=== PATIENT | male | born 1970 | race African-American/Black ===

== ENCOUNTER 2016-03-20 09:23 | Emergency (ER) | payer BC, OTHER ==
[~2016-03-20] VITALS: Ht 175.3 cm; Wt 100.0 kg
[~2016-03-20 09:23] MED LIST: AMLO5 PO; ASPI81TA82 PO; CARB6.5S5 EACH EAR; DIPH1TAB36 PO; EXCETAB; ISOS60TA PO; LISI-363 PO; LOVA40TA PO; METF500 PO
[2016-03-20 09:25] VITALS: BP 179/97; PULSE 88; RESP 16; TEMP 97.9; O2SAT 97
[2016-03-20 09:27] VITALS: BP 179/97; PULSE 88; RESP 16; TEMP 97.9; O2SAT 97
--- NOTE | 2016-03-20 10:06 | PD ---
HPI Chief Complaint: Complaint Time Seen by Provider: 10:01 Travel History International Travel<30 days: No Contact w/Intl Traveler<30days: No Traveled to known affect area: No History of Present Illness HPI 45yo M with PMH of DM, CAD s/p cardiac stent, HTN presents to the ED with c/o yellow penile discharge for 3 days. Denies any fever, n/v, chest pain, sob, abdominal pain, testicular pain, penile rash. States he got it from his female partner. Had STD years ago. PFSH Past Medical History Hx Anticoagulant Therapy: Yes (asa) Arthritis: No Asthma: No Blood Disorders: No Heart Rhythm Problems: No Cancer: No Cardiac Catheterization: Yes Cardiovascular Problems: Yes (htn, 2 mi, stents) High Cholesterol: Yes Chest Pain: Yes Congestive Heart Failure: No COPD: No Cerebrovascular Accident: No Diabetes: No Endocrine: No Gastrointestinal Disorders: No GERD: Yes Glaucoma: No Genitourinary: No Headaches: No Hepatitis: No Hiatal Hernia: No Hypertension: Yes Immune Disorder: No Kidney Stones: No Musculoskeletal: No Neurologic: No Psychiatric: No Reproductive: No Respiratory: Yes Migraines: No Myocardial Infarction: Yes (2007 - STENT PLACED, X2) Renal Failure: No Seizures: No Sleep Apnea: No Thyroid Disease: No Ulcer: No Past Surgical History Abdominal Surgery: No Appendectomy: No Cardiac Surgery: Yes (stent) Cholecystectomy: No Coronary Stent: Yes Ear Surgery: No Endocrine Surgery: No Eye Surgery: No Genitourinary Surgery: No Gynecologic Surgery: No Neurologic Surgery: No Oral Surgery: Yes (tonsillectomy) Pacemaker: No Thoracic Surgery: No Tonsillectomy: Yes Other Surgery: No Social History Alcohol Use: Yes (THREE TIMES WEEKLY) Tobacco Use: Yes (occ cigars) Substance Use: Yes (COCAINE/MARIJUANA) Allergies-Medications (Allergen,Severity, Reaction): Coded Allergies: No Known Allergies (Verified , 03/20/16) Reported Meds & Prescriptions Reported Meds & Active Scripts Active Debrox (Carbamide Peroxide) 6.5 % Soln 4 Drop EACH EAR DAILY Lisinopril 20 mg (Lisinopril) 20 Mg Tab 20 Mg PO BID Norvasc (Amlodipine Besylate) 5 Mg Tab 5 Mg PO BID Lovastatin 40 Mg Tab 80 Mg PO HS Glucophage 500 mg (Metformin HCl) 500 Mg Tab 500 Mg PO BIDPC Reported Excedrin Migraine (Faxzvpc-Whphazjuiedhd-Sosfdksi) Migraine Tab 250 Mg DAILY Isosorbide Mononitrate Er (Isosorbide Mononitrate) 60 Mg Tab 60 Mg PO HS Tylenol Pm (Acetaminophen/Diphenhydramine HCl) Tab 1 Tab PO HS Aspir-81 (Aspirin) 81 Mg Tab 81 Mg PO DAILY Review of Systems Except as stated in HPI: all other systems reviewed are Neg Physical Exam Narrative GEN: 45yo M not in distress. HEAD: Normocephalic, atraumatic. NECK: No JVD. Trachea midline. CV: S1, S2. Lungs: CTA B/L, equal breath sounds. Abd: soft, NT/ND. No rebound tenderness or guarding. : +White penile discharge. No rash on penis. No testicular pain. BACK: No midline ttp. Ext: Soft calf, no lower extremity edema. Data Data Last Documented VS Vital Signs Date Time Temp Pulse Resp B/P Pulse Ox O2 Delivery O2 Flow Rate FiO2 03/20/16 10:14 82 20 03/20/16 09:27 97.9 179/97 97 Room Air Orders Azithromycin Powd Pack (Zithromax Powd P (03/20/16 10:15) Ceftriaxone Inj (Rocephin Inj) (03/20/16 10:15) Lidocaine 1% Inj (50 Ml) (Xylocaine 1% I (03/20/16 10:15) Gc And Chlamydia Pcr (03/20/16 10:02) MDM Medical Decision Making Medical Screen Exam Complete: Yes Emergency Medical Condition: Yes Differential Diagnosis Chlamydia vs. gonorrhea Narrative Course 45yo M with yellow penile discharge for 3 days. Pt has no testicular pain, abdominal pain, nausea, vomiting, fever or any systemic complaints. Pt is well appearing and given ceftriaxone IM and azithromycin PO for presumed GC/ chlamydia. Cultures were sent. Return precautions given. Diagnosis Primary Impression: STD (male) Patient Instructions: General Instructions Departure Forms: Tests/Procedures Additional Instructions: Please follow up with you PMD in 3-7 days. Return to the ED if symptoms worsen. Please have your partner treated as well and avoid sexual intercourse for 2 weeks. Med/Other Pt SpecificInfo: No Change to Meds Disposition: 01 DISCHARGE HOME Condition: Stable Natividad Vera Mar 20, 2016 10:06
[2016-03-20] MEDS ORDERED: LIDOCAINE HCL 1% 50 ML VIAL IM ONE (10:15)
[2016-03-20] MEDS ORDERED: AZITHROMYCIN PWD FOR SUSP 1 GM PACKET PO ONE (10:15)
[2016-03-20] MEDS ORDERED: cefTRIAXone 250 MG VIAL IM ONE (10:15)
== END 2016-03-20 10:52 | disposition home or self-care (01) ==
LOC: NEDAMB 09:23
DX: A64 Unspecified sexually transmitted disease (principal); Z95.5 Presence of coronary angioplasty implant and graft; I25.10 Atherosclerotic heart disease of native coronary artery without angina pectoris; I10 Essential (primary) hypertension; E11.9 Type 2 diabetes mellitus without complications; Z79.01 Long term (current) use of anticoagulants; E78.00 Pure hypercholesterolemia, unspecified; I25.2 Old myocardial infarction; Z72.0 Tobacco use
CPT/HCPCS: 96372; 99283; J0696

== ENCOUNTER 2016-10-02 20:01 | Emergency (ER) | payer SELFPAY ==
[~2016-10-02] VITALS: Ht 172.7 cm; Wt 100.0 kg
[2016-10-02 20:03] VITALS: BP 186/108; PULSE 95; RESP 16; TEMP 99.2; O2SAT 98
[2016-10-02] MEDS ORDERED: AMLO5TAB2 PO (21:11)
[2016-10-02] MEDS ORDERED: ISOS20TA PO (21:11)
[2016-10-02] MEDS ORDERED: LISI-515 PO (21:11)
[2016-10-02] MEDS ORDERED: ASPI81TA81 (21:11)
[2016-10-02] MEDS ORDERED: LOVA40TA PO (21:11)
[2016-10-02] MEDS ORDERED: ONDANSETRON ODT 4 MG TAB PO ONE (21:15)
[2016-10-02] MEDS ORDERED: metroNIDAZOLE 500 MG TAB PO ONE (21:15)
[2016-10-02] MEDS ORDERED: cefTRIAXone 250 MG VIAL IM ONE (21:15)
[2016-10-02] MEDS ORDERED: LIDOCAINE HCL 1% 50 ML VIAL IM ONE (21:15)
[2016-10-02] MEDS ORDERED: AZITHROMYCIN PWD FOR SUSP 1 GM PACKET PO ONE (21:15)
--- NOTE | 2016-10-02 21:43 | PD ---
HPI Chief Complaint: Medical Clearance Time Seen by Provider: 21:01 Travel History International Travel<30 days: No Contact w/Intl Traveler<30days: No Traveled to known affect area: No History of Present Illness HPI 46 yo man who presents emergent from complaining of dysuria and penile discharge or burning. He states he is only sleeping 1 woman but he's gotten an STD from her before. Denies any testicular pain or swelling. He otherwise has been feeling generally well and healthy. History Past Medical History Narrative Medical CAD Hypertension Diabetes Hyperlipidemia Social History Alcohol Use: Yes (THREE TIMES WEEKLY) Tobacco Use: Yes (occ cigars) Allergies-Medications (Allergen,Severity, Reaction): Coded Allergies: No Known Allergies (Verified , 03/20/16) Reported Meds & Prescriptions Reported Meds & Active Scripts Active Reported Lovastatin 40 Mg Tab 40 Mg PO DAILY Lisinopril 20 Mg Tab 20 Mg PO DAILY Isosorbide Mononitrate 20 Mg Tab 20 Mg PO BID Take 2 doses 7 hours apart. Aspir-81 (Aspirin) 81 Mg Tabdr Amlodipine (Amlodipine Besylate) 5 Mg Tab 5 Mg PO DAILY Review of Systems Except as stated in HPI: all other systems reviewed are Neg Physical Exam Narrative GENERAL: Well-appearing 46-year-old man. SKIN: Warm and dry. CARDIOVASCULAR: Warm and well perfused. RESPIRATORY: Normal rate and effort. : Normal external male genitalia. Circumcised. Mucoid penile discharge. No testicular pain tenderness or swelling. NEUROLOGICAL: Awake and alert. No gross deficits. Data Data Last Documented VS Vital Signs Date Time Temp Pulse Resp B/P Pulse Ox O2 Delivery O2 Flow Rate FiO2 10/02/16 20:03 99.2 95 16 186/108 98 Room Air Orders Azithromycin Powd Pack (Zithromax Powd P (10/02/16 21:15) Ceftriaxone Inj (Rocephin Inj) (10/02/16 21:15) Lidocaine 1% Inj (50 Ml) (Xylocaine 1% I (10/02/16 21:15) Metronidazole (Flagyl) (10/02/16 21:15) Ondansetron Odt (Zofran Odt) (10/02/16 21:15) Gc And Chlamydia Pcr (10/02/16 21:12) MDM Medical Decision Making Medical Screen Exam Complete: Yes Emergency Medical Condition: Yes Differential Diagnosis Urethritis, STD, UTI, other Narrative Course Medical decision making Is a 46 year-old woman presents emergent arm with urethritis symptoms. Looks well. We'll recommend empiric treatment. Diagnosis Primary Impression: Urethritis Additional Instructions: Followup with your primary doctor for routine care and followup testing for other sexually transmitted infection such as HIV, hepatitis, syphilis. Any sexual partners you have should be tested and treated as well. You should not have sex until you have no symptoms, and your partners tested and treated as well. Med/Other Pt SpecificInfo: No Change to Meds Disposition: 01 DISCHARGE HOME Condition: Stable Artie Nicolas MD Oct 02, 2016 21:43
[2016-10-02 21:46] VITALS: BP 172/88
[2016-10-03 00:55] LABS: CHLAMYDIA PCR NOT DETECTED (NOT DETECT); NEISSERIA PCR DETECTED (NOT DETECT)
== END 2016-10-02 22:02 | disposition home or self-care (01) ==
LOC: NEPD 20:01
DX: N34.2 Other urethritis (principal)
CPT/HCPCS: 87491; 87591; 96372; 99284; J0696

== ENCOUNTER 2017-06-22 12:46 | Emergency (ER) | payer OTHER ==
[~2017-06-22 12:46] MED LIST changes: -AMLO5 PO; +AMLO5TAB2 PO; +ASPI81TA81; -ASPI81TA82 PO; -CARB6.5S5 EACH EAR; -DIPH1TAB36 PO; -EXCETAB; +ISOS20TA PO; -ISOS60TA PO; -LISI-363 PO; +LISI-515 PO; -METF500 PO
[2017-06-22 12:55] VITALS: BP 183/92; PULSE 88; RESP 18; TEMP 97.5; O2SAT 99
[2017-06-22 13:32] VITALS: BP 171/100; PULSE 93; RESP 18; O2SAT 98
[2017-06-22] MEDS ORDERED: SODIUM CHLORIDE 0.9% FLUSH 10 ML FLUSH IVF PRN (13:45)
[2017-06-22 13:48] LABS: AUTOMATED NEUTROPHIL # 2.6 TH/MM3 (1.8-7.7); BASOPHIL % 0.5 % (0.0-2.0); EOSINOPHIL % 0.6 % (0.0-4.0); HEMATOCRIT 43.2 % (39.0-51.0); LYMPH % 40.4 % (9.0-44.0); MEAN CELL VOLUME 83.9 FL (80.0-100.0); MEAN CORPUSCULAR HEMOGLOBIN 27.2 PG (27.0-34.0); MEAN CORPUSCULAR HGB CONC 32.4 % (32.0-36.0); MONO % 5.5 % (0.0-8.0); MONOCYTE # 0.3 TH/MM3 (0-0.9); PLATELET COUNT 210 TH/MM3 (150-450); RED BLOOD COUNT 5.15 MIL/MM3 (4.50-5.90); RED CELL DISTRIBUTION WIDTH 14.4 % (11.6-17.2)
--- NOTE | 2017-06-22 13:49 | PD ---
HPI Chief Complaint: Bleeding Time Seen by Provider: 13:24 Travel History International Travel<30 days: No Contact w/Intl Traveler<30days: No Traveled to known affect area: No History of Present Illness HPI Patient is a 47-year-old male presenting to the emergency room for evaluation of rectal bleeding. Patient states he has had 2 bowel movements this morning, after which she is noted blood in the toilet bowl. Patient reports a similar episode several months ago but was never evaluated for it. He denies any constipation, diarrhea, abdominal pain, nausea, vomiting. Patient is also requesting refills of his blood pressure medication. He reports that his primary doctor is in [place] and he cannot get there. He has no complaints of chest pain, shortness of breath, headache. Symptom onset was sudden, symptoms are mild in nature. Unknown alleviating or exacerbating factors. Patient has never had a colonoscopy. He does endorse daily alcohol use, he reports 2-3 beers a day. PFSH Past Medical History Hx Anticoagulant Therapy: Yes (asa) Cardiac Catheterization: Yes High Cholesterol: Yes Chest Pain: Yes Coronary Artery Disease: Yes Diabetes: Yes Gastrointestinal Disorders: Yes (reflux) GERD: Yes Hypertension: Yes Medical other: Yes (reflux) Respiratory: Yes Myocardial Infarction: Yes (2007 - STENT PLACED, X2) Past Surgical History Oral Surgery: Yes (tonsillectomy) Tonsillectomy: Yes Other Surgery: Yes Social History Alcohol Use: Yes (3 beers/daily) Tobacco Use: Yes (occ cigars) Substance Use: Yes (COCAINE/MARIJUANA) Allergies-Medications (Allergen,Severity, Reaction): Coded Allergies: No Known Allergies (Verified , 03/20/16) Reported Meds & Prescriptions Reported Meds & Active Scripts Active Reported Lovastatin 40 Mg Tab 40 Mg PO DAILY Isosorbide Mononitrate 20 Mg Tab 20 Mg PO BID Take 2 doses 7 hours apart. Aspir-81 (Aspirin) 81 Mg Tabdr Amlodipine (Amlodipine Besylate) 5 Mg Tab 5 Mg PO DAILY Review of Systems Except as stated in HPI: all other systems reviewed are Neg HENT: No: Headaches Cardiovascular: No: Chest Pain or Discomfort Respiratory: No: Shortness of Breath Gastrointestinal: Positive: Other, No: Nausea, Vomiting, Diarrhea, Abdominal Pain, Constipation, Changes in Bowel Habits Genitourinary: No: Dysuria Musculoskeletal: No: Myalgias Neurologic: No: Weakness, Dizziness Physical Exam Narrative GENERAL: Overweight, well-developed, alert -Wallis[place] male. Presenting in no acute distress. SKIN: Warm and dry. HEAD: Atraumatic. Normocephalic. EYES: Pupils equal and round. No scleral icterus. No injection or drainage. ENT: No nasal bleeding or discharge. Mucous membranes pink and moist. NECK: Trachea midline. No JVD. CARDIOVASCULAR: Regular rate and rhythm. RESPIRATORY: No accessory muscle use. Clear to auscultation. Breath sounds equal bilaterally. GASTROINTESTINAL: Abdomen soft, non-tender, nondistended. Hepatic and splenic margins not palpable. MUSCULOSKELETAL: Extremities without clubbing, cyanosis, or edema. No obvious deformities. RECTAL EXAM: No masses or tenderness, stool is brown. No external hemorrhoids or fissures noted. NEUROLOGICAL: Awake and alert. No obvious cranial nerve deficits. Motor grossly within normal limits. Five out of 5 muscle strength in the arms and legs. Normal speech. PSYCHIATRIC: Appropriate mood and affect; insight and judgment normal. Data Data Last Documented VS Vital Signs Date Time Temp Pulse Resp B/P (MAP) Pulse Ox O2 Delivery O2 Flow Rate FiO2 06/22/17 14:50 84 16 171/96 (121) 99 Room Air 06/22/17 12:55 97.5 Orders Orders Electrocardiogram (06/22/17 12:58) Complete Blood Count With Diff (06/22/17 12:58) Chest, Single Ap (06/22/17 12:58) Comprehensive Metabolic Panel (06/22/17 13:36) Act Partial Throm Time (Ptt) (06/22/17 13:36) Prothrombin Time / Inr (Pt) (06/22/17 13:36) Ecg Monitoring (06/22/17 13:38) Iv Access Insert/Monitor (06/22/17 13:38) Oximetry (06/22/17 13:38) Sodium Chloride 0.9% Flush (Ns Flush) (06/22/17 13:45) Isosorbide Mononitrate (Ismo) (06/22/17 14:00) Amlodipine (Norvasc) (06/22/17 14:00) Ckmb (Isoenzyme) Profile (06/22/17 13:49) Troponin I (06/22/17 13:49) CKMB (06/22/17 13:49) CKMB% (06/22/17 13:49) Labs Laboratory Tests Test 06/22/17 13:16 06/22/17 13:49 White Blood Count 5.0 TH/MM3 Red Blood Count 5.15 MIL/MM3 Hemoglobin 14.0 GM/DL Hematocrit 43.2 % Mean Corpuscular Volume 83.9 FL Mean Corpuscular Hemoglobin 27.2 PG Mean Corpuscular Hemoglobin Concent 32.4 % Red Cell Distribution Width 14.4 % Platelet Count 210 TH/MM3 Mean Platelet Volume 9.0 FL Neutrophils (%) (Auto) 53.0 % Lymphocytes (%) (Auto) 40.4 % Monocytes (%) (Auto) 5.5 % Eosinophils (%) (Auto) 0.6 % Basophils (%) (Auto) 0.5 % Neutrophils # (Auto) 2.6 TH/MM3 Lymphocytes # (Auto) 2.0 TH/MM3 Monocytes # (Auto) 0.3 TH/MM3 Eosinophils # (Auto) 0.0 TH/MM3 Basophils # (Auto) 0.0 TH/MM3 CBC Comment DIFF FINAL Differential Comment Prothrombin Time 10.4 SEC Prothromb Time International Ratio 1.0 RATIO Activated Partial Thromboplast Time 23.4 SEC Blood Urea Nitrogen 15 MG/DL Creatinine 1.45 MG/DL Random Glucose 335 MG/DL Total Protein 8.0 GM/DL Albumin 3.7 GM/DL Calcium Level 9.2 MG/DL Alkaline Phosphatase 66 U/L Aspartate Amino Transf (AST/SGOT) 48 U/L Alanine Aminotransferase (ALT/SGPT) 66 U/L Total Bilirubin 0.4 MG/DL Sodium Level 138 MEQ/L Potassium Level 4.1 MEQ/L Chloride Level 105 MEQ/L Carbon Dioxide Level 22.9 MEQ/L Anion Gap 10 MEQ/L Estimat Glomerular Filtration Rate 63 ML/MIN Total Creatine Kinase 265 U/L Creatine Kinase MB 0.6 NG/ML Troponin I LESS THAN 0.02 NG/ML MDM Medical Decision Making Medical Screen Exam Complete: Yes Emergency Medical Condition: Yes Medical Record Reviewed: Yes Interpretation(s) Last Impressions Chest X-Ray 06/22/17 [id number] Signed Impressions: Service Date/Time: Thursday, June 22, 2017 13:43 - CONCLUSION: 1. No acute cardiopulmonary disease. Ken Calero MD Laboratory Tests Test 06/22/17 13:16 06/22/17 13:49 White Blood Count 5.0 TH/MM3 Red Blood Count 5.15 MIL/MM3 Hemoglobin 14.0 GM/DL Hematocrit 43.2 % Mean Corpuscular Volume 83.9 FL Mean Corpuscular Hemoglobin 27.2 PG Mean Corpuscular Hemoglobin Concent 32.4 % Red Cell Distribution Width 14.4 % Platelet Count 210 TH/MM3 Mean Platelet Volume 9.0 FL Neutrophils (%) (Auto) 53.0 % Lymphocytes (%) (Auto) 40.4 % Monocytes (%) (Auto) 5.5 % Eosinophils (%) (Auto) 0.6 % Basophils (%) (Auto) 0.5 % Neutrophils # (Auto) 2.6 TH/MM3 Lymphocytes # (Auto) 2.0 TH/MM3 Monocytes # (Auto) 0.3 TH/MM3 Eosinophils # (Auto) 0.0 TH/MM3 Basophils # (Auto) 0.0 TH/MM3 CBC Comment DIFF FINAL Differential Comment Prothrombin Time 10.4 SEC Prothromb Time International Ratio 1.0 RATIO Activated Partial Thromboplast Time 23.4 SEC Blood Urea Nitrogen 15 MG/DL Creatinine 1.45 MG/DL Random Glucose 335 MG/DL Total Protein 8.0 GM/DL Albumin 3.7 GM/DL Calcium Level 9.2 MG/DL Alkaline Phosphatase 66 U/L Aspartate Amino Transf (AST/SGOT) 48 U/L Alanine Aminotransferase (ALT/SGPT) 66 U/L Total Bilirubin 0.4 MG/DL Sodium Level 138 MEQ/L Potassium Level 4.1 MEQ/L Chloride Level 105 MEQ/L Carbon Dioxide Level 22.9 MEQ/L Anion Gap 10 MEQ/L Estimat Glomerular Filtration Rate 63 ML/MIN Total Creatine Kinase 265 U/L Creatine Kinase MB 0.6 NG/ML Troponin I LESS THAN 0.02 NG/ML Vital Signs Date Time Temp Pulse Resp B/P (MAP) Pulse Ox O2 Delivery O2 Flow Rate FiO2 06/22/17 13:32 93 18 171/100 (123) 98 Room Air 06/22/17 13:32 18 99 Room Air 06/22/17 12:55 97.5 88 18 183/92 (122) 99 Differential Diagnosis Hemorrhoids versus anal fissure versus anemia versus upper GI bleed versus metabolic abnormality versus hypertension versus other Narrative Course Patient is a well-appearing 47-year-old male presenting for evaluation of blood in his stools 2 this morning. His blood pressure is mildly elevated on arrival , he is out of his blood pressure medications and is requesting refills. Labs ordered and pending. CBC with no acute findings, specifically patient has no drop in his hemoglobin to suggest chronic bleeding. Chemistry with creatinine 1.45. Cardiac enzymes were ordered while patient was waiting in triage. They are negative 1 set. Patient has no complaints of chest pain Chest x-ray shows no acute disease. Patient was given isosorbide and amlodipine in the emergency department, these are medications that he was on at home. No acute findings identified. Patient will be discharged home with follow-up with his primary doctor. He will also be given information regarding the [facility] clinic because he is having issues with transportation to [place] to see his primary doctor. Patient and verbalized understanding of discharge instructions. Patient stable for discharge. H[facility] Point of Care Fecal Specimen Occult Blood: Positive Diagnosis Primary Impression: Rectal bleeding Additional Impression: Hypertension Qualified Codes: I10 - Essential (primary) hypertension Referrals: [facility] 1 week Patient Instructions: General Instructions, Hypertension (ED), Rectal Bleeding (ED) Additional Instructions: Follow-up with your primary doctor for routine health care. Follow-up with [facility] for colonoscopy Continue home medications as previously prescribed, do not skip doses Return to the emergency department for any new or worsening symptoms Med/Other Pt SpecificInfo: Prescription(s) given Scripts Lovastatin (Lovastatin) 40 Mg Tab 40 MG PO DAILY for Cholesterol Management, #30 TAB 0 Refills Prov: Jen Mae 06/22/17 Isosorbide Mononitrate (Isosorbide Mononitrate) 20 Mg Tab 20 MG PO BID for Prevent Chest Pain, #60 TAB 0 Refills Take 2 doses 7 hours apart. Prov: Jen Mae 06/22/17 Amlodipine (Amlodipine) 5 Mg Tab 5 MG PO DAILY for Blood Pressure Management, #30 TAB 0 Refills Prov: Jen Mae 06/22/17 Disposition: 01 DISCHARGE HOME Condition: Stable Jen Mae Jun 22, 2017 13:49
[2017-06-22] MEDS ORDERED: ISOSORBIDE MONONITRATE 20 MG TAB PO ONE (14:00)
[2017-06-22] MEDS ORDERED: amLODIPine BESYLATE 5 MG TAB PO ONE (14:00)
[2017-06-22 14:12] LABS: PROTHROMBIN TIME - PATIENT 10.4 SEC (9.8-11.6)
[2017-06-22 14:21] LABS: ALKALINE PHOSPHATASE 66 U/L (45-117); TOTAL BILIRUBIN ADULT 0.4 MG/DL (0.2-1.0)
--- NOTE | 2017-06-22 14:25 | RADRPT ---
EXAM DATE/TIME: 06/22/2017 13:43 [facility] COMPARISON: CHEST SINGLE AP, August 12, 2015, 18:52. INDICATIONS : Chest pain that started today. MEDICAL HISTORY : Hypertension. Myocardial infarction. Gastroesophageal reflux disease. SURGICAL HISTORY : Angioplasty. Tonsillectomy. ENCOUNTER: Initial ACUITY: 1 day PAIN SCORE: 4/10 LOCATION: Bilateral chest FINDINGS: A single view of the chest demonstrates the lungs to be symmetrically aerated without evidence of mas s, infiltrate or effusion. The cardiomediastinal contours are unremarkable. Osseous structures are intact. CONCLUSION: 1. No acute cardiopulmonary disease. Ken Calero MD on June 22, 2017 at 14:22 Board Certified Radiologist. This report was verified electronically.
[2017-06-22 14:29] LABS: ALBUMIN 3.7 GM/DL (3.4-5.0); ALT (GPT) 66 U/L (12-78); AST (GOT) 48 U/L (15-37); BICARBONATE 22.9 MEQ/L (21.0-32.0); BLOOD UREA NITROGEN 15 MG/DL (7-18); CALCIUM 9.2 MG/DL (8.5-10.1); CHLORIDE 105 MEQ/L (98-107); CREATININE 1.45 MG/DL (0.60-1.30); GLOMERULAR FILTRATION RATE 63 ML/MIN (>89); GLUCOSE,RANDOM 335 MG/DL (74-106); SODIUM (NA) 138 MEQ/L (136-145); TROPONIN I LESS THAN 0.02 NG/ML (0.02-0.05)
[2017-06-22 14:37] VITALS: BP 160/80; PULSE 96; RESP 16; O2SAT 95
[2017-06-22 14:50] VITALS: BP 171/96; PULSE 84; RESP 16; O2SAT 99
[2017-06-22 15:12] VITALS: BP 152/81; PULSE 85; RESP 16; O2SAT 97
[2017-06-22] MEDS ORDERED: LOVA40TA PO (15:14)
[2017-06-22] MEDS ORDERED: AMLO5TAB2 PO (15:14)
[2017-06-22] MEDS ORDERED: ISOS20TA PO (15:14)
--- NOTE | 2017-06-23 21:30 | EKG ---
Date Performed: 06/22/2017 Time Performed: 13:05:30 PTAGE: 47 years EKG: Sinus rhythm LEFT VENTRICULAR HYPERTROPHY AND ST-T CHANGE LATERAL MYOCARDIAL INFARCTION INFERIOR MYOCARDIAL INFAR CTION Compared to PREVIOUS TRACING , ANTEROLATERAL Q WAVES ARE MORE PROMINENT Clinical correlation is recom mended PREVIOUS TRACIN08/13/2015 04.27 DOCTOR: Kameron Zelaya Interpretating Date/Time 06/23/2017 21:29:51
== END 2017-06-22 15:35 | disposition home or self-care (01) ==
LOC: NEPE 12:46
DX: K62.5 Hemorrhage of anus and rectum (principal); I10 Essential (primary) hypertension; R07.9 Chest pain, unspecified; I25.10 Atherosclerotic heart disease of native coronary artery without angina pectoris; E11.9 Type 2 diabetes mellitus without complications; K21.9 Gastro-esophageal reflux disease without esophagitis; Z72.0 Tobacco use; F12.90 Cannabis use, unspecified, uncomplicated; F14.90 Cocaine use, unspecified, uncomplicated
CPT/HCPCS: 71045; 80053; 82550; 82552; 84484; 85025; 85610; 85730; 93005; 99285

== ENCOUNTER 2017-08-23 10:28 | Observation (INO) | payer BC, OTHER ==
[2017-08-23] VITALS (9 sets, daily range): BP systolic 121–155; BP diastolic 67–89; PULSE 81–98; RESP 17–21; TEMP 96.5–98.5; O2SAT 95–98
[~2017-08-23] VITALS: Ht 175.3 cm; Wt 100.0 kg
[~2017-08-23 10:28] MED LIST changes: -LISI-515 PO
[2017-08-23 11:34] LABS: AUTOMATED NEUTROPHIL # 2.3 TH/MM3 (1.8-7.7); BASOPHIL % 0.5 % (0.0-2.0); EOSINOPHIL % 0.9 % (0.0-4.0); HEMATOCRIT 42.6 % (39.0-51.0); HEMOGLOBIN 14.1 GM/DL (13.0-17.0); LYMPH % 46.4 % (9.0-44.0); LYMPHOCYTE # 2.4 TH/MM3 (1.0-4.8); MEAN CELL VOLUME 82.6 FL (80.0-100.0); MEAN CORPUSCULAR HEMOGLOBIN 27.4 PG (27.0-34.0); MEAN CORPUSCULAR HGB CONC 33.1 % (32.0-36.0); MEAN PLATELET VOLUME 8.8 FL (7.0-11.0); MONO % 6.5 % (0.0-8.0); MONOCYTE # 0.3 TH/MM3 (0-0.9); NEUT % 45.7 % (16.0-70.0); PLATELET COUNT 236 TH/MM3 (150-450); RED BLOOD COUNT 5.16 MIL/MM3 (4.50-5.90); RED CELL DISTRIBUTION WIDTH 13.9 % (11.6-17.2); WHITE BLOOD COUNT 5.1 TH/MM3 (4.0-11.0)
[2017-08-23 11:41] LABS: PROTHROMBIN TIME - PATIENT 10.3 SEC (9.8-11.6)
--- NOTE | 2017-08-23 11:41 | RADRPT ---
EXAM DATE: 08/23/2017 11:34 AM EDT AGE/SEX: 47 years / Male INDICATIONS: Chest pain for 4 days. Pain upper left chest. CLINICAL DATA: This is the patient's initial encounter. Patient reports that signs and symptoms have been present for 4 - 6 days and indicates a pain score of 7/10. MEDICAL/SURGICAL HISTORY: Hypertension. Diabetes. . Cardiac catherization. COMPARISON: No prior exams available for comparison. FINDINGS: PA and lateral views of the chest demonstrate the lungs to be symmetrically aerated without evidence of mass, infiltrate or effusion. The cardiomediastinal contours are unremarkable. Osseous structures are intact. CONCLUSION: No evidence of acute cardiopulmonary process. Electronically signed by: Otis Mike MD 08/23/2017 11:40 AM EDT
[2017-08-23] MEDS ORDERED: METF1000 PO (11:45)
[2017-08-23] MEDS ORDERED: HYDR12.56 PO (11:45)
[2017-08-23] MEDS ORDERED: ASPIRIN 325 MG TAB PO ONE (12:00)
[2017-08-23] MEDS ORDERED: NITROGLYCERIN 0.4 MG SL 25 TABS/BTL SL ONE (12:00)
[2017-08-23 12:10] LABS: BICARBONATE 19.9 MEQ/L (21.0-32.0); BLOOD UREA NITROGEN 17 MG/DL (7-18); CALCIUM 9.5 MG/DL (8.5-10.1); CHLORIDE 101 MEQ/L (98-107); CREATININE 1.37 MG/DL (0.60-1.30); GLOMERULAR FILTRATION RATE 67 ML/MIN (>89); GLUCOSE,RANDOM 380 MG/DL (74-106); SODIUM (NA) 135 MEQ/L (136-145); TROPONIN I LESS THAN 0.02 NG/ML (0.02-0.05)
[2017-08-23] MEDS ORDERED: INSULIN HUMAN REGULAR 1,000 UNITS/10 ML VIAL SQ ONE (12:15)
[2017-08-23] MEDS ORDERED: SODIUM CHLOR 0.9% 1000 ML INJ 1,000 ML IV ONE (12:15)
--- NOTE | 2017-08-23 12:20 | PD ---
HPI Chief Complaint: Chest Pain Time Seen by Provider: 11:11 Travel History International Travel<30 days: No Contact w/Intl Traveler<30days: No Traveled to known affect area: No History of Present Illness HPI 47-year-old male presents to the ED for evaluation of left-sided chest pain that has been going for about 4 days. Per patient he gets worse with exertion especially with movement. He states that it comes and goes and he feels like a pinch in his chest. Per patient he had 7 out of 10. Currently he has no pain but during my examination he had one episode of the pain that went away on its own in less than a minute. He does have a history of cardiac disease and states that he has had stents in the past having had them lasting 2011. She does not follow with a patient intake coordinator in the area but does follow with the [facility]. He has a history of diabetes, high blood pressure and cholesterol issues. He does take a baby aspirin every day and took one today. Per patient he got concerned because the pain has not gone away and continues to come about. She denies any recent travel or injury. He cannot really pinpoint what makes it worse but he states that movement definitely makes it worse. Pain stays to the left chest and does not radiate. Per patient last time he had something like this led ago and he had a heart attack with stents. He is concerned that he may be the same. She denies take any blood thinners currently. He has no allergies to medication. No abdominal pain. No nausea or vomiting. No other medical issues at this time. PFSH Past Medical History Hx Anticoagulant Therapy: Yes (ASA-TOOK ONE TODAY 08/23/17) Cardiac Catheterization: Yes Cardiovascular Problems: Yes (htn, 2 mi, stents) High Cholesterol: Yes Chest Pain: Yes Coronary Artery Disease: Yes Diabetes: Yes Patient Takes Glucophage: Yes Gastrointestinal Disorders: Yes (reflux) GERD: Yes Hypertension: Yes Medical other: Yes (reflux) Respiratory: Yes Myocardial Infarction: Yes (2007 - STENT PLACED, X2) Past Surgical History Cardiac Surgery: Yes (stent) Coronary Stent: Yes Oral Surgery: Yes (tonsillectomy) Tonsillectomy: Yes Other Surgery: Yes Social History Alcohol Use: Yes (3 beers/daily) Tobacco Use: Yes (occ cigars) Substance Use: No (denies hx COCAINE/MARIJUANA) Allergies-Medications (Allergen,Severity, Reaction): Coded Allergies: No Known Allergies (Verified Adverse Reaction, Unknown, 08/23/17) Reported Meds & Prescriptions Reported Meds & Active Scripts Active Lovastatin 40 Mg Tab 40 Mg PO DAILY Isosorbide Mononitrate 20 Mg Tab 20 Mg PO BID Take 2 doses 7 hours apart. Amlodipine (Amlodipine Besylate) 5 Mg Tab 5 Mg PO DAILY Reported Metformin (Metformin HCl) 1,000 Mg Tab 1,000 Mg PO DAILY With a meal Hydrochlorothiazide 12.5 Mg Tab 12.5 Mg PO DAILY Aspir-81 (Aspirin) 81 Mg Tabdr Review of Systems Except as stated in HPI: all other systems reviewed are Neg Physical Exam Narrative GENERAL: SKIN: Warm and dry. HEAD: Atraumatic. Normocephalic. EYES: Pupils equal and round. No scleral icterus. No injection or drainage. ENT: No nasal bleeding or discharge. Mucous membranes pink and moist. Tongue is midline. No uvula deviation. NECK: Trachea midline. No JVD. CARDIOVASCULAR: Regular rate and rhythm. No murmurs, S3, S4. RESPIRATORY: No accessory muscle use. Clear to auscultation. Breath sounds equal bilaterally. GASTROINTESTINAL: Abdomen soft, non-tender, nondistended. Hepatic and splenic margins not palpable. MUSCULOSKELETAL: Extremities without clubbing, cyanosis, or edema. No obvious deformities. Full range of motion of the upper and lower extremities bilaterally. 2+ pulses bilaterally. NEUROLOGICAL: Awake and alert. No obvious cranial nerve deficits. Motor grossly within normal limits. Five out of 5 muscle strength in the arms and legs. Normal speech. PSYCHIATRIC: Appropriate mood and affect; insight and judgment normal. Data Data Last Documented VS Vital Signs Date Time Temp Pulse Resp B/P (MAP) Pulse Ox O2 Delivery O2 Flow Rate FiO2 08/23/17 11:51 92 21 121/76 (91) 98 Room Air 08/23/17 10:47 98.4 Orders Orders Electrocardiogram (08/23/17 10:52) Complete Blood Count With Diff (08/23/17 10:52) Basic Metabolic Panel (Bmp) (08/23/17 10:52) Ckmb (Isoenzyme) Profile (08/23/17 10:52) Troponin I (08/23/17 10:52) Prothrombin Time / Inr (Pt) (08/23/17 10:52) Chest, Pa & Lat (08/23/17 10:52) Aspirin (Aspirin) (08/23/17 12:00) Nitroglycerin Sl (Nitrostat Sl) (08/23/17 12:00) CKMB (08/23/17 11:10) CKMB% (08/23/17 11:10) Insulin Human Regular Inj (Novolin R Inj (08/23/17 12:15) Ns (Bolus) Inj (08/23/17 12:15) Labs Laboratory Tests Test 08/23/17 11:10 White Blood Count 5.1 TH/MM3 Red Blood Count 5.16 MIL/MM3 Hemoglobin 14.1 GM/DL Hematocrit 42.6 % Mean Corpuscular Volume 82.6 FL Mean Corpuscular Hemoglobin 27.4 PG Mean Corpuscular Hemoglobin Concent 33.1 % Red Cell Distribution Width 13.9 % Platelet Count 236 TH/MM3 Mean Platelet Volume 8.8 FL Neutrophils (%) (Auto) 45.7 % Lymphocytes (%) (Auto) 46.4 % Monocytes (%) (Auto) 6.5 % Eosinophils (%) (Auto) 0.9 % Basophils (%) (Auto) 0.5 % Neutrophils # (Auto) 2.3 TH/MM3 Lymphocytes # (Auto) 2.4 TH/MM3 Monocytes # (Auto) 0.3 TH/MM3 Eosinophils # (Auto) 0.0 TH/MM3 Basophils # (Auto) 0.0 TH/MM3 CBC Comment DIFF FINAL Differential Comment Prothrombin Time 10.3 SEC Prothromb Time International Ratio 1.0 RATIO Blood Urea Nitrogen 17 MG/DL Creatinine 1.37 MG/DL Random Glucose 380 MG/DL Calcium Level 9.5 MG/DL Sodium Level 135 MEQ/L Potassium Level 4.0 MEQ/L Chloride Level 101 MEQ/L Carbon Dioxide Level 19.9 MEQ/L Anion Gap 14 MEQ/L Estimat Glomerular Filtration Rate 67 ML/MIN Total Creatine Kinase 222 U/L Troponin I LESS THAN 0.02 NG/ML MDM Medical Decision Making Medical Screen Exam Complete: Yes Emergency Medical Condition: Yes Medical Record Reviewed: Yes Interpretation(s) EKG shows sinus rhythm with no sign of acute ischemia or arrhythmia read by me and attending. There is no changes from prior in June. Read by me and my attending Dr. Min. CBC & BMP Diagram 08/23/17 11:10 Calcium Level 9.5 troponin and CK negative Last Impressions Chest X-Ray 08/23/17 1052 Signed Impressions: CONCLUSION: No evidence of acute cardiopulmonary process. Differential Diagnosis Chest pain versus typical chest pain versus ACS Narrative Course 39-year-old male the presents to the ED for evaluation of chest pain. Patient was properly examined and was found to have signs and symptoms concerning for ACS. He does have some risk factors. Patient did had an episode of chest pain and nitroglycerin was given here. Patient was also given aspirin. Labs and imaging were ordered in triage. There were essentially unremarkable. No signs of EKG changes from June. At this time I do recommend admission to the chest pain center for chest pain center rule out as patient has not had any stress test per patient in about a year. He had his last one here in 2017. He does have multiple risk factors for heart disease and he states that his pain is exertional. Some concern for angina. Patient agrees with admission to the chest pain center. Patient's blood sugar was slightly elevated here so patient was given a liter of fluid and insulin to help bring down his sugar. Procedures EKG Prior to Arrival: No Diagnosis Primary Impression: Chest pain Qualified Codes: R07.9 - Chest pain, unspecified Admitting Information Admitting Physician Requests: Tristin Mcfadden Aug 23, 2017 12:20
[2017-08-23] MEDS ORDERED: ACETAMINOPHEN 500 MG CPLT PO PRN (13:00)
[2017-08-23] MEDS ORDERED: NITROGLYCERIN 0.4 MG SL 25 TABS/BTL SL PRN (13:00)
[2017-08-23] MEDS ORDERED: SODIUM CHLORIDE 0.9% FLUSH 10 ML FLUSH IV FLUSH PRN (13:00)
[2017-08-23] MEDS ORDERED: ONDANSETRON ODT 4 MG TAB PO PRN (13:00)
[2017-08-23] MEDS ORDERED: DEXTROSE 50% IN WATER 50 ML VIAL(D50) IV PUSH PRN (14:30)
--- NOTE | 2017-08-23 14:30 | HHI.HP ---
HPI Primary Care Physician Rafita Denis MD (Paul) Chief Complaint Chest pain History of Present Illness 47-year-old male with known coronary artery disease, 2 cardiac stents, hypertension, and recently diagnosed type II diabetes 1.5 weeks ago presents the emergency room for further evaluation of chest pain. Onset 4 days. Location left anterior chest. Characterized as a "deep inside pinching sensation." No radiation. Severity 7/10. No associated symptoms of nausea, vomiting, dyspnea, or diaphoresis. Duration generally last 30 minutes. Precipitating factors include laying on left side or when pushing himself up out of bed or a chair. Endorses walking today also seemed to bring on discomfort. Symptoms begin suddenly, gradually resolving. Endorses similar pain in the past with past heart attacks, although presenting symptoms are not as severe. Reports routinely experiences similar chest discomfort but symptoms over last 4 days have increased in severity and frequency. Reports when severe "pinching" sensation resolves a dull, soreness discomfort lingers. Currently reporting the dull, lingering discomfort. Unable to recall why or what provider started him on Imdur. Review of Systems General: No fatigue, weakness, fever, chills, recent illness, or change in appetite. Has been his general state of health. HEENT: No [place], no vision changes, no nasal congestion or drainage CV: Continues to have chest discomfort as stated above. RESP: No SOB, cough, wheeze, recent URI, or history of asthma GI: No nausea, vomiting, bowel changes, diarrhea, or constipation. No unintentional weight gain or weight loss. : No dysuria, urgency, frequency EXT: No lower leg edema. Left foot tingling, reported this to his PCP and told sensation likely due to diabetes. MS: No discomfort, recent injury, trauma, or change in ROM NEURO: No dizziness, difficulty with balance, LOC, or motor/sensory deficits PSYCH: No anxiety, depression, or suicidal ideation SKIN: No rashes, no concerning lesions Past Family Social History Allergies: Coded Allergies: No Known Allergies (Verified Allergy, Unknown, 08/23/17) Past Medical History Coronary artery disease, 2 cardiac stent, hyperlipidemia, type 2 diabetes, GERD , hypertension, former smoker, former substance abuse Past Surgical History Tonsillectomy, 2 cardiac stents Reported Medications Reported Meds & Active Scripts Active Lovastatin 40 Mg Tab 40 Mg PO DAILY Isosorbide Mononitrate 20 Mg Tab 20 Mg PO BID Take 2 doses 7 hours apart. Amlodipine (Amlodipine Besylate) 5 Mg Tab 5 Mg PO DAILY Metformin (Metformin HCl) 1,000 Mg Tab 1,000 Mg PO BID With a meal Hydrochlorothiazide 12.5 Mg Tab 12.5 Mg PO DAILY Aspir-81 (Aspirin) 81 Mg Tabdr Active Ordered Medications Current Medications Medications (Trade) Dose Ordered Sig/Codey Route Start Time Stop Time Status Last Admin (NS Flush) 2 ml UNSCH PRN IV FLUSH 08/23/17 13:00 (NS Flush) 2 ml BID IV FLUSH 08/23/17 21:00 (Tylenol) 500 mg Q4H PRN PO 08/23/17 13:00 (Nitrostat Sl) 0.4 mg Q5M PRN SL 08/23/17 13:00 (Aspirin) 325 mg DAILY PO 08/24/17 09:00 (Zofran Odt) 4 mg Q6H PRN PO 08/23/17 13:00 Family History Noncontributory for early onset cardiovascular disease. Mother of cancer when he was an infant. Father from prostate cancer. Social History Known coronary artery disease, hypertension, hyperlipidemia, and newly diagnosed type 2 diabetes. Former smoker, quitting 3 years ago. Denies any alcohol use. Remote substance abuse, quitting shortly after his last heart attack. Currently unemployed. Past cardiac testing No recent cardiac testing. Does not follow with a lieutenant governor. 09/22/12 Cardiac catheterization (Dr. Vincent) STEMI alert. Conclusions 1. Normal hemodynamics. 2. Mildly impaired LV function.3. Two-vessel coronary artery disease with acute occlusion of the right coronary artery now successfully rescued with a bare-metal stent. 08/13/15 Lexiscan Conclusions 1. Small area of mild reversibility involving the anterior wall of the left ventricle. This could indicate stress-induced ischemia. 2. Stable fixed defect representing an old infarct of the inferior wall. 3. Stable global hypokinesis with reduced left ejection fraction calculated at 43%. Ejection fraction is stable compared to October 2009 exam. 10/24/09 Lexiscan Impression 1. Scintigraphic findings suggestive of an old basilar infarct with no reversibility to suggest ischemia. 2. Mild global hypokinesis with an estimated ejection fraction of 46%. 2006 Cardiac catheterization (Dr. Davis) STEMI alert. Conclusions 1. The left main was free of significant disease.2. Left anterior descending artery had ANGIE II- ANGIE III flow and had a 30-4-% stenosis in its distal portion. 3. The circumflex artery was large, codominant and had a mild luminal irregularities. 4. The right coronary artery was 100% occluded the next proximal portion. Physical Exam Vital Signs Vital Signs Date Time Temp Pulse Resp B/P (MAP) Pulse Ox O2 Delivery O2 Flow Rate FiO2 08/23/17 13:02 98 21 08/23/17 11:51 92 21 121/76 (91) 98 Room Air 08/23/17 10:47 98.4 98 20 135/67 (89) 95 Laboratory Laboratory Tests Test 08/23/17 11:10 White Blood Count 5.1 Red Blood Count 5.16 Hemoglobin 14.1 Hematocrit 42.6 Mean Corpuscular Volume 82.6 Mean Corpuscular Hemoglobin 27.4 Mean Corpuscular Hemoglobin Concent 33.1 Red Cell Distribution Width 13.9 Platelet Count 236 Mean Platelet Volume 8.8 Neutrophils (%) (Auto) 45.7 Lymphocytes (%) (Auto) 46.4 Monocytes (%) (Auto) 6.5 Eosinophils (%) (Auto) 0.9 Basophils (%) (Auto) 0.5 Neutrophils # (Auto) 2.3 Lymphocytes # (Auto) 2.4 Monocytes # (Auto) 0.3 Eosinophils # (Auto) 0.0 Basophils # (Auto) 0.0 CBC Comment DIFF FINAL Differential Comment Prothrombin Time 10.3 Prothromb Time International Ratio 1.0 Blood Urea Nitrogen 17 Creatinine 1.37 Random Glucose 380 Calcium Level 9.5 Sodium Level 135 Potassium Level 4.0 Chloride Level 101 Carbon Dioxide Level 19.9 Anion Gap 14 Estimat Glomerular Filtration Rate 67 Total Creatine Kinase 222 Creatine Kinase MB LESS THAN 0.5 Troponin I LESS THAN 0.02 Result Diagram: 08/23/17 1110 08/23/17 1110 Imaging Last 48 hours Impressions Chest X-Ray 08/23/17 1052 Signed Impressions: CONCLUSION: No evidence of acute cardiopulmonary process. Course EKG NSR, T-wave inversions inferiorly and V4-V6, Q waves inferiorly (unchanged from previous EKG) Caprini VTE Risk Assessment Caprini VTE Risk Assessment: No/Low Risk (score <= 1) Caprini Risk Assessment Model Point Value = 1 Point Value = 2 Point Value = 3 Point Value = 5 Age 41-60 Minor surgery BMI > 25 kg/m2 Swollen legs Varicose veins or History of unexplained or recurrent spontaneous Oral contraceptives or hormone replacement Sepsis (< 1 month) Serious lung disease, including pneumonia (< 1 month) Abnormal pulmonary function Acute myocardial infarction Congestive heart failure (< 1 month) History of inflammatory bowel disease Medical patient at bed rest Age 61-74 Arthroscopic surgery Major open surgery (> 45 min) Laparoscopic surgery (> 45 min) Malignancy Confined to bed (> 72 hours) Immobilizing plaster cast Central venous access Age >= 75 History of VTE Family history of VTE Factor V Leiden Prothrombin [id number] Lupus anticoagulant Anticardiolipin antibodies Elevated serum homocysteine Heparin-induced thrombocytopenia Other congenital or acquired thrombophilia Stroke (< 1 month) Elective arthroplasty Hip, pelvis, or leg fracture Acute spinal cord injury (< 1 month) Prophylaxis Regimen Total Risk Factor Score Risk Level Prophylaxis Regimen 0-1 Low Early ambulation 2 Moderate Order ONE of the following: *Sequential Compression Device (SCD) *Heparin 5000 units SQ BID 3-4 Higher Order ONE of the following medications: *Heparin 5000 units SQ TID *Enoxaparin/Lovenox 40 mg SQ daily (WT < 150 kg, CrCl > 30 mL/min) *Enoxaparin/Lovenox 30 mg SQ daily (WT < 150 kg, CrCl > 10-29 mL/min) *Enoxaparin/Lovenox 30 mg SQ BID (WT < 150 kg, CrCl > 30 mL/min) AND/OR *Sequential Compression Device (SCD) 5 or more Highest Order ONE of the following medications: *Heparin 5000 units SQ TID (Preferred with Epidurals) *Enoxaparin/Lovenox 40 mg SQ daily (WT < 150 kg, CrCl > 30 mL/min) *Enoxaparin/Lovenox 30 mg SQ daily (WT < 150 kg, CrCl > 10-29 mL/min) *Enoxaparin/Lovenox 30 mg SQ BID (WT < 150 kg, CrCl > 30 mL/min) AND *Sequential Compression Device (SCD) Assessment and Plan Assessment and Plan #1 Chest pain-admitted chest pain center. Begin ruling out ACS per protocol. Will be seen and evaluated by Dr. Pat Haddad. Discussed likely will complete chemical stress test in a.m. if ruled out. This will be determined after evaluation by lieutenant governor. Patient verbalizes understanding and agreeable to plan of care. #2 History of CAD-continue Imdur, atorvastatin, and amlodipine. Strongly encouraged to establish with a local lieutenant governor for routine visits. Education with discussion of reducing cardiovascular risks includes medication adherence, lifestyle modifications, and tight control of hyperlipidemia, hypertension, and diabetes. Encouraged efforts of smoking cessation and instructed not to restart smoking or start using illegal substances. #3 Type II diabetes-recently diagnosed and started on metformin. SSI medium dose coverage, hold metformin at this time. Diabetes education discussed in length including diet and medication adherence. Discussed likely primary doctor will begin ABEBA inhibitor. Reinforced importance of statin therapy especially with new diagnoses of diabetes. Myriam Pinedo Aug 23, 2017 14:30
[2017-08-23 15:57] LABS: TROPONIN I LESS THAN 0.02 NG/ML (0.02-0.05)
[2017-08-23] MEDS: INSULIN ASPART SUPPLEMENTAL SCALE SQ SCH ×2 (17:00→21:47)
[2017-08-23 18:30] LABS: TROPONIN I LESS THAN 0.02 NG/ML (0.02-0.05)
[2017-08-23] MEDS: ISOSORBIDE MONONITRATE 20 MG TAB PO SCH (21:45)
[2017-08-23] MEDS: SODIUM CHLORIDE 0.9% FLUSH 10 ML FLUSH IV FLUSH SCH (21:47)
[2017-08-24 03:45] VITALS: BP 133/86; PULSE 82; RESP 15; TEMP 98.1; O2SAT 97
[2017-08-24 04:42] VITALS: PULSE 77
[2017-08-24] MEDS: ISOSORBIDE MONONITRATE 20 MG TAB PO SCH (06:48)
[2017-08-24] MEDS: INSULIN ASPART SUPPLEMENTAL SCALE SQ SCH (08:00)
[2017-08-24 08:15] VITALS: PULSE 80
[2017-08-24] MEDS ORDERED: HYDROCHLOROTHIAZIDE 12.5 MG CAP PO SCH (09:00)
[2017-08-24] MEDS ORDERED: amLODIPine BESYLATE 5 MG TAB PO SCH (09:00)
[2017-08-24] MEDS ORDERED: ASPIRIN 325 MG TAB PO SCH (09:00)
[2017-08-24] MEDS ORDERED: PRAVASTATIN SOD 40 MG TAB PO SCH (09:00)
[2017-08-24] MEDS ORDERED: REGADENOSON INJ 0.4 MG/5 ML SYR ONE (09:01)
[2017-08-24 10:04] VITALS: BP 159/92; PULSE 73; RESP 18; TEMP 97.6; O2SAT 98
[2017-08-24] MEDS: SODIUM CHLORIDE 0.9% FLUSH 10 ML FLUSH IV FLUSH SCH (10:13)
--- NOTE | 2017-08-24 10:43 | RADRPT ---
EXAM DATE: 08/24/2017 10:13 AM EDT AGE/SEX: 47 years / Male INDICATIONS:Angina. Coronary artery disease Left sided chest pain for four days. CLINICAL DATA: This is the patient's initial encounter. Patient reports that signs and symptoms have been present for 4 - 6 days and indicates a pain score of 7/10. MEDICAL/SURGICAL HISTORY: Diabetes mellitus type II. Hypertension. Gastroesophageal reflux di sease. Coronary artery stent. Tonsillectomy. COMPARISON: No prior exams available for comparison. No external comparison. DOSE: 35 mCi Tc 99m Myoview at rest 11 mCi [id number] at stress 0.4 mg Lexiscan STRESS SYMPTOMS: Headache. EJECTION FRACTION: 42 % TECHNIQUE: The patient underwent pharmacologic stress with infusion of prescribed dose. Continuous ECG tracing was monitored during stress. Gated SPECT imaging was performed after stress and conventi onal SPECT imaging was performed at rest. The examination was performed on a SPECT/CT scanner, both attenuation and non-corrected datasets were reviewed. FINDINGS: Distribution: The maximum perfused segment at stress is in the lateral wall. Perfusion Study: On both the stress and rest images, there is decreased activity along the entire i nferior wall approximately 50% decreased; raw data images demonstrate a prominent diaphragmatic atten uation and relative degree of uptake in the inferior wall increases on the attenuation corrected data set; therefore, the decrease in inferior wall activity is most probably due to diaphragmatic attenuat ion. Regional variations perfusion in the remainder of the myocardial segments is within 25%. No evid ence of redistribution. Gated Study: There are intact wall motion and wall thickening without hypokinetic or dyskinetic segm ents. The ejection fraction is calculated at 42%. RISK CATEGORY: Low (<1% Annual Motality Rate) CONCLUSION: 1. No evidence of stress-induced ischemia. 2. Depressed ejection fraction of 42%. 3. Decrease in activity in the inferior wall on both stress and rest images is most likely due to di aphragmatic attenuation. Electronically signed by: Tremayne Bowens MD 08/24/2017 10:42 AM EDT
--- NOTE | 2017-08-24 11:10 | HHI.DCPOC ---
Discharge Care Plan Diagnosis: (1) Chest pain (2) CAD (coronary artery disease) (3) H/O heart artery stent (4) Hypertension (5) HLD (hyperlipidemia) (6) DM (diabetes mellitus) Goals to Promote Your Health * To prevent worsening of your condition and complications * To maintain your health at the optimal level Directions to Meet Your Goals Take your medications as prescribed Follow your dietary instruction Follow activity as directed Keep your appointments as scheduled Take your immunizations and boosters as scheduled If your symptoms worsen call your PCP, if no PCP go to Urgent Care Center or Emergency Room Smoking is Dangerous to Your Health. Avoid second hand smoke Call the 24-hour hour crisis hotline for domestic abuse at [place] Andrade Aug 24, 2017 11:10
--- NOTE | 2017-08-24 11:25 | EKG ---
Date Performed: 08/23/2017 Time Performed: 14:54:58 PTAGE: 47 years EKG: Sinus rhythm VOLTAGE CRITERIA FOR LVH INFERIOR MYOCARDIAL INFARCTION ABNORMAL ECG NONSPECIFIC T WAVE CHANGES PREVIOUS TRACING : 08/23/2017 10.56 Since previous tracing, no significant change noted DOCTOR: Shravan Spears Interpretating Date/Time 08/24/2017 11:23:29
--- NOTE | 2017-08-24 11:25 | EKG ---
Date Performed: 08/23/2017 Time Performed: 17:09:36 PTAGE: 47 years EKG: Sinus rhythm VOLTAGE CRITERIA FOR LVH INFERIOR MYOCARDIAL INFARCTION ABNORMAL ECG PREVIOUS TRACING : 08/23/2017 14.54 Since previous tracing, no significant change noted DOCTOR: Shravan Spears Interpretating Date/Time 08/24/2017 11:23:02
--- NOTE | 2017-08-24 11:25 | EKG ---
Date Performed: 08/23/2017 Time Performed: 10:56:36 PTAGE: 47 years EKG: Sinus rhythm LEFT VENTRICULAR HYPERTROPHY AND ST-T CHANGE INFERIOR MYOCARDIAL INFARCTION ABNORMAL ECG INTERPRETAT ION BASED ON A DEFAULT AGE OF 39 YEARS NO PREVIOUS TRACING DOCTOR: Shravan Spears Interpretating Date/Time 08/24/2017 11:24:18
--- NOTE | 2017-08-24 11:33 | TR ---
Date Performed: 08/24/2017 Time Performed: 09:09:29 DOCTOR: Shravan Spears DRUG LIST: CLINICAL HISTORY: REASON FOR TEST: REASON FOR ENDING: OBSERVATION: CONCLUSION: Lexiscan stress test was performed under standard four minute protocol. Radionuclid e was injected one minute prior to ending the test. No electrocardiographic abormalities were present to suggest ischemia. Nuclear imaging and interpretation are pending. COMMENTS:
== END 2017-08-24 12:20 | disposition home or self-care (01) ==
LOC: NEPE 10:28 → NEDA 12:28 → NEPFCDU 13:23
PROVIDERS: ADMIT Internal Medicine Interventional Cardiology; ATTEND Internal Medicine Interventional Cardiology
DX: R07.9 Chest pain, unspecified (principal); I25.10 Atherosclerotic heart disease of native coronary artery without angina pectoris; I10 Essential (primary) hypertension; E78.5 Hyperlipidemia, unspecified; E11.9 Type 2 diabetes mellitus without complications; Z95.5 Presence of coronary angioplasty implant and graft
CPT/HCPCS: 71046; 78452; 80048; 82550; 82552; 82948; 84484; 85025; 85610; 93005; 93017; 96360; 96361; 96372; 99285; A9502; G0378; J1815; J2785; J7030